=== PATIENT | male | born 1995 | race African-American/Black ===

== ENCOUNTER 2019-03-03 21:57 | Inpatient (IN) | payer OTHER ==
[~2019-03-03] VITALS: Ht 177.8 cm; Wt 108.0 kg
[2019-03-03 22:18] LABS: BASOPHILS % (AUTO) 0.5 % (0.0-2.0); EOSINOPHILS % (AUTO) 2.4 % (0.0-6.0); HEMATOCRIT 42 % (39-51); HEMOGLOBIN 14.4 g/dL (13.5-17.5); LYMPHOCYTES # (AUTO) 2.7 /CMM (0.8-4.8); LYMPHOCYTES % (AUTO) 46.1 % (20.0-44.0); MEAN CORPUSCULAR HGB CONC 34 g/dl (31.0-36.0); MEAN CORPUSCULAR VOLUME 86 fL (80-96); MONOCYTES # (AUTO) 0.5 /CMM (0.1-1.30); MONOCYTES % (AUTO) 8.4 % (2.0-12.0); NEUTROPHILS # (AUTO) 2.5 /CMM (1.8-8.9); NEUTROPHILS % (AUTO) 42.6 % (43.0-81.0); PLATELET COUNT (AUTO) 329 /CMM (150-450); RED BLOOD CELL COUNT(AUTO) 4.93 MIL/uL (4.5-6.0); WHITE BLOOD COUNT (AUTO) 5.9 K/uL (4.3-11.0)
[2019-03-03 22:25] LABS: CALCIUM, SERUM 8.9 mg/dL (8.5-10.1); CARBON DIOXIDE 26 mmol/L (21-32); CHLORIDE 105 mmol/L (98-107); GLUCOSE 106 mg/dL (74-106); POTASSIUM 3.4 mmol/L (3.5-5.1); SODIUM SERUM 140 mmol/L (136-145); UREA NITROGEN, BLOOD 14 mg/dL (7-18)
[2019-03-03] MEDS ORDERED: IV NS 0.9% 1,000 ML BAG IV ONE (22:30)
[2019-03-03 22:31] LABS: ALANINE AMINOTRANSFERASE 38 U/L (12-78); ALBUMIN 3.9 g/dL (3.4-5.0); ALKALINE PHOSPHATASE 72 U/L (46-116); ASPARTATE AMINOTRANSFERASE 20 U/L (15-37); BILIRUBIN,DIRECT 0.1 mg/dL (0.0-0.2); BILIRUBIN,TOTAL 0.3 mg/dL (0.2-1.0); TOTAL PROTEIN, SERUM 7.2 g/dL (6.4-8.2)
--- NOTE | 2019-03-03 22:39 | NUR ---
BIBF. C/O "SYNCOPE AT HOME. L SIDE CP NOW" NON RADIATING. AOX2. VSS. -SOB TO ER BED 3, URINE COLLECTED AND SENT TO LAB.
--- NOTE | 2019-03-04 00:47 | NUR ---
Milind reeves in [facility] - 03/04/19 at 0047 by [email or web address] [id number]
[2019-03-04 01:19] VITALS: BP 137/83
--- NOTE | 2019-03-04 01:20 | NUR ---
RN NOTES, RECEIVED 23 YEAR OLD MALE FROM ER VIA STRETCHER NO ACCOMPANIED BY 2 NURSES AND FAMILY AND GIRLFRIEND IN STABLE CONDITION, ON ROOM AIR, NO SOB/ACUTE DISTRESS NOTED, WITH VS 137/83, 64, 97.8, 99% RA, 18, 04/22, DENIES DISCOMFORT, STATED FEELING MUCH BETTER BAG OF FLUIDS STILL INFUSING, IV SITE RIGHT AC, PATENT AND INTACT, ADMITTED FOR SYNCOPE AND CHEST PAIN, UNDER GRECIA SIU, WILL F/U WITH ORDERS, ALL NEEDS PROVIDED, AFEBRILE, SKIN INTACT, CALL LIGHT W/I REACH, WILL CONTINUE TO MONITOR CLOSELY,
--- NOTE | 2019-03-04 01:24 | NUR ---
PT TRASNPORTED TO [facility] VIA ACLS PROTOCOL
[2019-03-04] MEDS ORDERED: ACETAMINOPHEN 325 MG TABLET PO PRN (02:00)
[2019-03-04] MEDS ORDERED: ZOLPIDEM TARTRATE 5 MG TABLET PO PRN (02:00)
[2019-03-04] MEDS ORDERED: Z GUARD REMEDY 2 OZ OINT TP PRN (02:00)
[2019-03-04] MEDS ORDERED: ONDANSETRON HCL/PF 4 MG/2 ML VIAL IVP PRN (02:00)
[2019-03-04] MEDS ORDERED: HYDROCODONE/APAP 5/325MG 1 EACH TABLET PO PRN (02:00)
[2019-03-04] MEDS ORDERED: MAGNESIUM HYDROXIDE 30 ML UDC PO PRN (02:00)
[2019-03-04] MEDS ORDERED: MAG HYDROX/AL HYDROX/SIMETH 30 ML UDC PO PRN (02:00)
[2019-03-04] MEDS: ENOXAPARIN SODIUM 40 MG/0.4 ML DISP.SYRIN SQ SCH ×2 (02:45→03:37)
[2019-03-04] MEDS ORDERED: POTASSIUM CHLORIDE 20 MEQ TAB.PRT.SR PO ONE (06:00)
--- NOTE | 2019-03-04 06:58 | NUR ---
RN NOTES, PATIENT IN BED BREATHING EVEN AND UNLABORED, NO SOB/ACUTE DISTRESS NOTED, NO C/O PAIN OR DISCOMFORT, NO CHANGE IN CONDITION DURING THE NIGHT, ALL NEEDS PROVIDED, CALL LIGHT W/I REACH, WILL ENDORSE CONTINUITY OF CARE TO ONCOMING NURSE.
--- NOTE | 2019-03-04 07:25 | NUR ---
DESSERT CUP MACHINE FEEDER OPENING NOTE RECEIVED REPORT FROM PM NURSE.PATIENT IN BED.AXOX4.ON ROOM AIR.NO SOB NO DISTRESS NOTED.NO C/O CHEST PAIN OR DIZZINESS.IV ON R AC INTACT AND PATENT.FAMILY AT BEDSIDE.ON TELE MONITOR SR WITH HR 80.BED IS LOW AND IN LOCKED POSITION.CALL LIGHT IN REACH.BED ALARM ON .SRX2.SAFETY MEASURES EXPLAINED TO THE PATIENT.VERBALIZED UNDERSTANDING.WILL CONTINUE TO MONITOR.
[2019-03-04 08:00] VITALS: BP 130/68
--- NOTE | 2019-03-04 11:37 | NUR ---
KARATE TEACHER NOTES SEEN BY .UPDATED ABOUT PATIENT CONDITION.OK TO DISCHARGE .PATIENT AWARE.
[2019-03-04 12:00] VITALS: BP 136/72
--- NOTE | 2019-03-04 14:39 | NUR ---
COMMUNICATIONS EQUIPMENT INSTALLERPRECISE WINDER NOTE SEEN BY .GOT DISCHARGE ORDER.OK TO GO HOME.FOLLOW UP WITH PCP.PATIENT AXOX4.ON RA.NO C/O PAIN.NO SOB NO DISTRESS NOTED.AMBULATORY.EXIT CARE GIVEN DAVIDE PATIENT AND FRANCESCA.VERBALIZED UNDERSTANDING.EDUCATION GIVEN .TOOK ALL BELONGINGS.SIGNED ALL PAPER WORK .IV REMOVED.MINIMAL BLEEDING NOTED.PRESSURE DRESSING APPLIED.INSTRUCTIONS GIVEN.LEFT WITH FRANCESCA IN PRIVATE CAR.
== END 2019-03-04 14:35 | disposition home or self-care (01) | DRG 312 ==
LOC: ER 22:00 → TELE1 03-04 00:50
DX: R55 Syncope and collapse (principal); E87.6 Hypokalemia; F12.90 Cannabis use, unspecified, uncomplicated; R03.0 Elevated blood-pressure reading, without diagnosis of hypertension
CPT/HCPCS: 36415; 70450-TC; 71045-TC; 80048-TC; 80076-TC; 80305; 84484-TC; 85025-TC; 87081-TC; 93307-TC; G0378; J1650; J7030